=== PATIENT | female | born 1970 | race Caucasian/White ===

== ENCOUNTER → 2021-07-03 11:12 | Outpatient (CLI) | payer OTHER, SELFPAY ==
--- NOTE | ~2021-07-03 | MM_ITS ---
EXAMINATION: MM screening [facility] BI w edie HISTORY: Screening mammogram TECHNIQUE: Craniocaudal and mediolateral oblique 3-D tomosynthesis images were obtained and synthetic 2-D images were generated. CAD analysis was submitted and interpreted. COMPARISON: 12/19/2018, 12/16/2017, 12/11/2016, 09/02/2015 BREAST PARENCHYMAL COMPOSITION: The breasts are extremely dense, which lowers the sensitivity of mamm ography. FINDINGS: There is no evidence of suspicious mass, calcification, or architectural distortion to sugg est malignancy in either breast. There has been no suspicious interval change. IMPRESSION: 1. No mammographic evidence of malignancy. 2. Recommend routine screening mammography in one year. 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
== END ==
PROVIDERS: Visit Provider Nurse Practitioner
DX: Z12.31 Encounter for screening mammogram for malignant neoplasm of breast (principal)
CPT/HCPCS: 77063; 77067

== ENCOUNTER → 2023-08-31 10:38 | Outpatient (CLI) | payer OTHER, SELFPAY ==
--- NOTE | ~2023-08-31 | MM_ITS ---
EXAMINATION: MM screening [facility] BI w edie HISTORY: Screening TECHNIQUE: Craniocaudal and mediolateral oblique 3-D tomosynthesis images were obtained and synthetic 2-D images were generated. CAD analysis was submitted and interpreted. COMPARISON: Comparison to multiple prior studies sequentially, with oldest reviewed study dated 09/02. BREAST PARENCHYMAL COMPOSITION: Dense: The breasts are extremely dense, which lowers the sensitivity of mammography. FINDINGS: There is no evidence of suspicious mass, calcification, or architectural distortion to sugg est malignancy in either breast. There has been no suspicious interval change. IMPRESSION: 1. No mammographic evidence of malignancy. 2. Recommend routine screening mammography in one year. 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
--- NOTE | ~2023-08-31 | DEXA_ITS ---
Bone Density Report Name: VANITA CALL Age: 53 Sex: Female Ethnicity: White Date of : 1970 Indication: postmenopausal; screening for osteoporosis; Referring Provider: LARISSA THOMAS Study: Bone densitometry was performed. Exam Date: August 31, 2023 Accession number: [id number] Bone Density: Region BMD T-score Z-score Classification AP Spine (L1-L4) 1.113 0.6 1.6 Normal Femoral Neck (Left) 0.796 -0.5 0.5 Normal Total Hip (Left) 1.112 1.4 2.0 Normal Femoral Neck (Right) 0.756 -0.8 0.1 Normal Total Hip (Right) 1.080 1.1 1.7 Normal Total Hip Mean 1.096 1.3 1.9 Normal World Health Organization criteria for BMD impression classify patients as: Normal (T-score at or above -1.0), Osteopenia (T-score between -1.0 and -2.5), or Osteoporosis (T-score at or below -2.5). 10-year Fracture Risk: FRAX not reported because: All T-scores for Spine Total, Hip Total, Femoral Neck at or above -1.0 Clinical Information Provided by Patient: Has used the following medications: Vitamin D Patient maximum height was 64.2 Menopause Age: 49 Drinks caffeinated beverages Onset of menses at age 13 Number of children 2 Impression: The patient has normal bone mass. Discussion: BONE DENSITY IS ABOVE THE MINIMUM DESIRABLE LEVEL AT ALL SKELETAL SITES TESTED. This patient?s bone mineral density is above the minimum desirable level (T-score -1.0 or better) at all sites measured. The patient should follow a healthful lifestyle (good nutrition with adequate calcium and vitamin D, and appropriate weight-bearing exercise). Follow-Up: Consider repeating this study in 5 years or sooner if there is some new clinical indication. Reported by: DARRION on 08/31/2023 10:54:00 AM. Reviewed, dictated and finalized at location A. [facility]
== END ==
PROVIDERS: PCP Obstetrics & Gynecology Gynecology; Visit Provider Obstetrics & Gynecology Gynecology
DX: Z12.31 Encounter for screening mammogram for malignant neoplasm of breast (principal); Z78.0 Asymptomatic menopausal state
CPT/HCPCS: 77063; 77067; 77080

== ENCOUNTER 2024-05-06 11:13 | Outpatient (CLI) | payer OTHER, SELFPAY ==
--- NOTE | ~2024-05-06 | US_ITS ---
EXAM: ABDOMEN ULTRASOUND HISTORY: Epigastric pain COMPARISON: None FINDINGS: LIVER: The liver is unremarkable in echogenicity and size. The portal vein is patent demonstrating hepatopedal flow. GALLBLADDER: Multiple stones are identified within the gallbladder, which is otherwise unremarkable. No gallbladder wall thickening or pericholecystic fluid. Sonographic Krishnan sign is reported to be positive. BILE DUCTS: Common bile duct measures 6mm. PANCREAS: Limited evaluation of the pancreas secondary to overlying bowel gas IMPRESSION: Cholelithiasis in an otherwise sonographically unremarkable gallbladder, with a positive sonographic Krishnan sign for which clinical correlation is needed. Reviewed, dictated and finalized at location A.
== END 2024-05-06 11:14 | disposition home or self-care (01) ==
PROVIDERS: PCP Obstetrics & Gynecology Gynecology
DX: K80.20 Calculus of gallbladder without cholecystitis without obstruction (principal)
CPT/HCPCS: 76705

== ENCOUNTER 2024-06-04 01:50 | Day surgery (SDC) | payer OTHER, SELFPAY ==
[2024-05-29 09:53] VITALS: BMI 24.7
--- NOTE | 2024-05-29 09:59 | PC.NURSE ---
Report to the Outpatient Waiting Room, entrance under the green pavilion located off [facility], at time _0600_ on date _[id number]_. Planned Procedure Time: _0730_.? Time changes happen often and if your time is changed the preop area will call you the afternoon before. - You and your visitor will be asked to self-screen and do not enter if you have any COVID symptoms. Please call surgeon if you need to reschedule. - A mask is optional within the hospital at this time. Patients may have clear liquids (water, carbonated beverages, clear teas, apple juice) until 3 hours prior to surgery with a maximum of 20 ounces. - No food from midnight until time of surgery and no smoking. This includes no chewing gum, candy or mints. Take only the following medications with a SIP of water on the morning of surgery: __None___ DO NOT STOP ANY OF YOUR OTHER PRESCRIPTION MEDICATIONS PRIOR TO SURGERY EXCEPT THE FOLLOWING Medications to discontinue per physician ____Multivitamin Date to take last xhyz___[id number]___ Please no make-up, nail mohawk, hairspray, perfume, deodorant, or body powder the day of surgery.? No jewelry (including any body piercings) or valuables the day of surgery, leave them at home.? Please take a shower or bath the night before, or the morning of, surgery with an antibacterial soap.? Wear comfortable, loose fitting clothing.? - Jewelry must be removed prior to entering the operating room.? Rings and piercings that are not removed may be cut off. - The hospital will not accept responsibility for valuables.? - Please leave all valuables, including medications, at home the day of surgery. If you are going home after surgery, a licensed parcel post truck driver must drive you home.? - NO public transportation without another adult if you receive anesthesia. - We recommend that an adult stay with you for 24 hours following discharge. - We also recommend that you do not drive, make important decision, drink alcoholic beverages, or take any drugs that were not prescribed by your health care provider for at least 24 hours after your discharge time. Follow any additional instructions given to you from your surgeon. Telephone instructions given to __Jill__and asked if any additional questions and then verbalized understanding. Patient advised to call surgeon office or pre surgery nurse liaison [phone] if any additional questions.
[2024-06-04] VITALS (9 sets, daily range): BP systolic 104–143; BP diastolic 58–86; PULSE 61–78; RESP 12–20; TEMP 36.5–36.6; O2SAT 99–100
--- NOTE | 2024-06-04 07:10 | ECG_ITS ---
Test Date: 2024-06-04 07:32:41 Measurements Intervals [place] Rate: 65 P: 72 MD: 165 QRS: 71 QRSD: 84 T: 75 QT: 401 QTc: 417 Interpretive Statements SINUS RHYTHM NORMAL ECG No previous ECG available for comparison Electronically Signed On 06-04-2024 07:38:12 CHILD ATTENDANT by Nino Granado D.O.
[2024-06-04] MEDS: ACETAMINOPHEN 500 MG TABLET 1000 MG PO (07:39)
[2024-06-04] MEDS: KETOROLAC 15 MG/ML VIAL (*BKC) IV PUSH (07:53)
[2024-06-04] MEDS: LACTATED RINGERS 1,000 ML 30 ML IV CONT (07:55)
--- NOTE | 2024-06-04 07:57 | P.PNAN_ITS ---
Anes - Initial Pre Proc Eval Procedure: Operation Date: 06/04/24 08:30 Proposed Procedures p Laparoscopic Cholecystectomy - Yvette Gauthier MD Date/Time: 06/04/24 07:57 Surgeon: Yvette Gauthier MD Pre Op Diagnosis: chronic calculous cholecystitis Patient Data Age: 54 Gender: F Height: 1.63 m Weight: 65.5 kg Allergies Allergy/AdvReac Type Severity Reaction Status Date / Time No Known Allergies Allergy Mild Verified 06/04/24 07:37 Home Medications Medication Instructions Recorded Confirmed Type multivitamin 1 tablet PO DAILY 05/19/24 06/04/24 History Patient hx anesthesia problems: none Family hx anesthesia problems: none Results Review: All pre-operative results and documents have been reviewed as part of the pre- operative evaluation. [facility] Surgical History Surgical History H/O excision of dermoid cyst Family History Family History Mother Family history of osteoporosis Family history of migraine headaches Patient's mother is in good health Grandparent Family history of obesity Hypertension Cerebrovascular accident Family history of hearing loss Family history of lung cancer Family history of malignant neoplasm of ovary Father Hypertension Patient's father is in good health Family history of elevated blood lipids Family history of hypercholesterolemia Family history of cardiovascular disease Sibling Patient's sister is in good health Other Family history of seizure disorder Social History Social History Smoking status: Never smoker Alcohol intake: current Living arrangements: with family Spiritual care concerns: No Anes - Eval Final PreProcedure Day of Procedure 06/04/24 07:57 Patient weight: normal Heart: regular rate and rhythm Lungs: clear to auscultation Airway: Mallampati scale class 1 Neurological: alert and oriented Last oral intake: >/= 8 hours ASA classification: I Emergent: no Anesthetic plan: proceed Anesthesia type and monitoring: general ETT and standard monitoring Results Review: All pre-operative results and documents have been reviewed as part of the pre- operative evaluation. 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 Informed Consent: The patient's anesthetic plan and its attendant risks and benefits were discussed with the patient/family/POA. Questions were solicited and answers provided to the satisfaction of the patient/family/POA.
--- NOTE | 2024-06-04 08:21 | WPDHPUPDATE1 ---
History and Physical Update Update Date/Time: 06/04/24 08:21 History and Physical has been reviewed, including an updated exam of the patient. There are NO changes in the patient's condition. Risks, benefits, and alternatives have been discussed and questions answered. Patient agrees to proceed with procedure.
[2024-06-04] MEDS: ceFAZolin 2 GM/D5W 50 ML 2 GM/50 ML BAG IVPB (08:28)
[2024-06-04] MEDS: BUPIVACAINE/EPINEPHRINE 0.5% 50 ML VIAL INFILTRATE (08:41)
--- NOTE | 2024-06-04 09:14 | P.OP_ITS ---
Procedure Note - Detailed Date of Procedure 06/04/24 Pre-op Diagnosis chronic calculous cholecystitis Post-op Diagnosis Same Procedure Performed Laparoscopic cholecystectomy Surgeon Yvette Gauthier MD Anesthesia General Indications 54-year-old female presented to the office complaining of postprandial right up per quadrant abdominal pain associated with nausea and bloating. Workup, including imaging, significant for chronic cholecystitis, cholelithiasis. Findings Cholecystitis with cholelithiasis Description of Procedure The patient was taken to the operating room placed in the supine position. After adequate induction of general anesthesia, the patient was prepped and draped in normal sterile fashion. A time-out was then performed to verify the patient's identity as well as the procedure being performed. I then made a 5 mm incision in the infraumbilical region. Through this, a Veress needle was placed into the peritoneal cavity and CO2 gas was then insufflated. After adequate pneumoperitoneum was achieved, the Veress needle was removed and a 5 mm optiview trocar was placed through this incision under direct visualization. I then placed the laparoscope through this trocar site and under direct visualization placed a further 12 mm subxiphoid port as well as 2 additional 5 mm ports in the right upper abdomen. The gallbladder was then identified and was noted to be moderately inflamed, distended, and full of gallstones. I was able to place a grasper at the dome of the gallbladder and this was retracted anterior and cephalad up over the liver. A 2nd retractor was then placed at the infundibulum and retracted laterally, this allowed visualization of the triangle of Calot. I then was able to visualize the cystic duct in its entirety from its proximal insertion into the gallbladder, to its distal junction with the common hepatic/common bile duct junction. At this point, I carefully skeletonized the proximal cystic duct with the [place] dissector. I then clipped and transected the proximal cystic duct. Next I visualized the cystic artery. Again the artery was skeletonized, clipped, and transected. I then used the Bovie cautery to take down the peritoneal attachments of the gallbladder off the liver bed. This was somewhat difficult given the amount of inflammation in the posterior space. Once the gallbladder specimen was completely detached, an endo-pouch was placed through the 12 mm port site. I then placed the gallbladder specimen into the Endo pouch and removed the endo-pouch from the 12 mm port site. The specimen will now be sent to pathology for further review. I then copiously irrigated the right upper quadrant. Hemostasis was noted in the liver bed, the clips were noted to be in good position on both the cystic duct stump and the cystic artery stump. No other pathology was noted in the right upper quadrant. I then moved the laparoscope to the subxiphoid port. No iatrogenic injury or other pathology was noted in the lower abdomen. I then closed the 12 mm trocar site under direct visualization using the Darell cone and 0 Vicryl suture. At this point, the abdomen was desufflated and all ports removed. All port sites were then closed with 4.O Monocryl subcuticular sutures. Dermabond was placed on each incision. The patient tolerated the procedure well, was extubated in the operating room postoperative and will be transferred to the recovery room in stable condition Estimated Blood Loss 5 Drains No Packing No Pathology Yes Complications No immediate complications Condition Stable Disposition PACU [facility] Billing Surgery - Charge Forward: Surgery Billing
[2024-06-04] MEDS: oxyCODONE HCL (*CRX) 5 MG TAB IR PO (10:52)
== END 2024-06-04 11:21 | disposition home or self-care (01) ==
PROVIDERS: Visit Provider Surgery
PROC: 0FT44ZZ Resection of Gallbladder, Percutaneous Endoscopic Approach (ICD-10-PCS; CPT 47562; principal; 2024-06-04 08:30)
DX: K80.10 Calculus of gallbladder with chronic cholecystitis without obstruction (principal)
CPT/HCPCS: 47562; 88304; 93005; A9270; J0690; J1100; J1885; J2003; J2250; J2371; J2405; J2704; J3010; J7120

== ENCOUNTER 2024-10-16 14:01 | Outpatient (CLI) | payer OTHER, SELFPAY ==
--- NOTE | ~2024-10-16 | MM_ITS ---
EXAMINATION: MM screening [facility] BI w edie HISTORY: Screening TECHNIQUE: Craniocaudal and mediolateral oblique 3-D tomosynthesis images were obtained and synthetic 2-D images were generated. CAD analysis was submitted and interpreted. COMPARISON: Comparison to multiple prior studies sequentially, with oldest reviewed study dated 09/02. BREAST PARENCHYMAL COMPOSITION: Dense: The breasts are extremely dense, which lowers the sensitivity of mammography. FINDINGS: The left breast is stable without evidence for malignancy. There is a new focal asymmetry i nferiorly and posteriorly on the MLO view, posterior third. IMPRESSION: 1. New focal right breast asymmetry. 2. Additional mammographic views and possible breast ultrasound are recommended. BI-RADS Category 0: Incomplete: Needs additional imaging evaluation. Reviewed, dictated and finalized at location A. IMPRESSION: 1. New focal right breast asymmetry. 2. Additional mammographic views and possible breast ultrasound are recommended . BI-RADS Category 0: Incomplete: Needs additional imaging evaluation.
== END 2024-10-16 14:02 | disposition home or self-care (01) ==
LOC: MICIMG 14:03
PROVIDERS: PCP Obstetrics & Gynecology Gynecology; Visit Provider Obstetrics & Gynecology Gynecology
DX: Z12.31 Encounter for screening mammogram for malignant neoplasm of breast (principal); R92.8 Other abnormal and inconclusive findings on diagnostic imaging of breast
CPT/HCPCS: 77063; 77067